=== PATIENT | female | born 1985 | race Caucasian/White ===

== ENCOUNTER → 2024-11-28 09:15 | Outpatient (BNVA) | payer OTHER, SELFPAY | PROVIDERS: Referring Provider Nurse Practitioner Family; Visit Provider Internal Medicine | DX: E28.2 Polycystic ovarian syndrome (principal); R63.5 Abnormal weight gain; R23.3 Spontaneous ecchymoses; L65.9 Nonscarring hair loss, unspecified | CPT/HCPCS: 36415; 82627; 84403; 84439; 84443 ==